=== PATIENT | female | born 2000 | race Caucasian/White ===

== ENCOUNTER 2020-02-29 05:40 | Emergency (ER) | payer OTHER ==
[~2020-02-29] VITALS: Ht 165.1 cm; Wt 82.0 kg
--- NOTE | 2020-02-29 05:52 | PHYS DOC ---
General Adult EDM: Chief Complaint: VAGINAL BLEEDING HPI: HPI: 19 yo F @ approximately 13w2d (RAMO 09/03/20), presents to the ED with complaints of vaginal spotting that was very scant and dark brown, that started 3 days ago. Now states for the past few hours she has had heavy vaginal bleedi ng and is concerned she's having a miscarriage. Follows with OB Dr. Wilfred Moran at [facility], had a transvaginal ultrasound that confirmed intrauterine . States at her 9-week appointment she was told the baby had "fluid in the lungs." At her 12-week appointment she was told the baby had no heartbeat and miscarriage was inevitable, reports she took ibuprofen at 1 AM and 4 AM before coming in. No history of bleeding disorders, blood transfusions or past surgical history. Takes daily multivitamins but no other prescribed medications. No tobacco, cocaine or other drug use. ROS: Denies associated fever, chills, cough, sore throat, dyspnea, chest pain, nausea, vomiting, diaphoresis, upper abdominal pain, flank pain, dysuria, he maturia, leg swelling, rash or blurry vision. (JACKELIN BATEMAN DO) HPI: The history was obtained from the patient. Patient is a 19-year-old female G1, P0 with no reported PMH who presents with a chief complaint of lower abdominal pain. Patient states that she is approximately 10 weeks . She notes that she has had previous ultrasounds to confirm IUP. She states a couple weeks ago her AUTOMOBILE SERVICE STATION MANAGER told her that the baby had fluid in its lungs and that she would likely miscarry. She states that the suprapubic pain is been aching in nature and constant. Denies any alleviating or exacerbating factors. Denies any vaginal bleeding or discharge. Denies syncope. No other complaints. (PEDRO LUIS LEE DO) Review of Systems: Review of Systems: Constitutional: Denies fever or chills Eyes: Denies change in visual acuity HENT: Denies nasal congestion or sore throat Respiratory: Denies cough or shortness of breath Cardiovascular: Denies chest pain or edema GI: Denies abdominal pain, nausea, vomiting, bloody stools or diarrhea : Denies dysuria Musculoskeletal: Denies back pain or joint pain Integument: Denies rash Neurologic: Denies headache, focal weakness or sensory changes Endocrine: Denies polyuria or polydipsia Lymphatic: Denies swollen glands Psychiatric: Denies depression or anxiety (JACKELIN BATEMAN DO) Review of Systems: Positive for abdominal pain All other review of systems negative (PEDRO LUIS LEE DO) Physical Exam: PE: Constitutional: Well developed, well nourished, no acute distress, non-toxic appearance. [] HENT: Normocephalic, atraumatic, bilateral external ears normal, nose normal. [] Eyes: EOMI, conjunctiva normal, no discharge. [] Neck: Normal range of motion, no tenderness, supple, no stridor. [] Cardiovascular:Heart rate regular rhythm, no murmur [] Lungs & Thorax: Bilateral breath sounds clear to auscultation [] Abdomen: Bowel sounds normal, soft, no tenderness, no masses, no pulsatile m asses. [] Skin: Warm, dry, no erythema, no rash. [] Back: No tenderness, no CVA tenderness. [] Extremities: No tenderness, no cyanosis, no clubbing, ROM intact, no edema. [] Neurologic: Alert and oriented X 3, normal motor function, normal sensory function, no focal deficits noted. [] Psychologic: judegement normal, appropriately emotional/tearful (JACKELIN BATEMAN DO) PE: Constitutional: Well developed, well nourished, no acute distress, non-toxic appearance. [] HENT: Normocephalic, atraumatic, bilateral external ears normal, oropharynx moist, nose normal. [] Eyes: PERRLA, EOMI, conjunctiva normal, no discharge. [] Neck: Normal range of motion, no tenderness, supple, no stridor. [] Cardiovascular: Heart rate regular rhythm, no murmur [] Lungs & Thorax: Bilateral breath sounds clear to auscultation [] Abdomen: Soft, no tenderness, no masses, no pulsatile masses. [] : Pelvic exam chaperoned by YAZAN Cody. Patient did have mild amount of bright red blood in the vaginal canal. After suctioning there was mild oozing noted from the external cervical os. No tissue visualized. No clots visualized. Skin: Warm, dry, no erythema, no rash. [] Back: No tenderness, no CVA tenderness. [] Extremities: No tenderness, no cyanosis, no clubbing, ROM intact, no edema. [] Neurologic: Alert and oriented X 3, normal motor function, normal sensory function, no focal deficits noted. [] Psychologic: Affect normal, judgement normal, mood normal. [] (PEDRO LUIS LEE DO) Current Patient Data: Labs: Laboratory Tests Test 02/29/20 05:59 02/29/20 06:10 Bedside Urine HCG, Qualitative hcg positive White Blood Count 12.2 x10^3/uL Red Blood Count 4.72 x10^6/uL Hemoglobin 13.2 g/dL Hematocrit 39.7 % Mean Corpuscular Volume 84 fL Mean Corpuscular Hemoglobin 28 pg Mean Corpuscular Hemoglobin Concent 33 g/dL Red Cell Distribution Width 14.6 % Platelet Count 246 x10^3/uL Neutrophils (%) (Auto) 74 % Lymphocytes (%) (Auto) 16 % Monocytes (%) (Auto) 8 % Eosinophils (%) (Auto) 2 % Basophils (%) (Auto) 1 % Neutrophils # (Auto) 9.1 x10^3uL Lymphocytes # (Auto) 1.9 x10^3/uL Monocytes # (Auto) 0.9 x10^3/uL Eosinophils # (Auto) 0.2 x10^3/uL Basophils # (Auto) 0.1 x10^3/uL Prothrombin Time 10.2 SEC Prothromb Time International Ratio 1.0 Activated Partial Thromboplast Time 25 SEC Urine Collection Type Unknown Urine Color Yellow Urine Clarity Hazy Urine pH 7.0 Urine Specific Scroggins 1.025 Urine Protein Trace Urine Glucose (UA) Neg mg/dL Urine Ketones (Stick) Neg mg/dL Urine Blood Trace Urine Nitrite Neg Urine Bilirubin Neg Urine Urobilinogen Dipstick 0.2 mg/dL Urine Leukocyte Esterase Neg Urine RBC 1-2 /HPF Urine WBC Occ /HPF Urine Squamous Epithelial Cells Mod /LPF Urine Bacteria Mod /HPF Urine Mucus Slight /LPF Maternal Serum HCG Beta Subunit 1224 mIU/mL Sodium Level 140 mmol/L Potassium Level 3.6 mmol/L Chloride Level 102 mmol/L Carbon Dioxide Level 26 mmol/L Anion Gap 12 Blood Urea Nitrogen 12 mg/dL Creatinine 0.9 mg/dL Estimated GFR (Cockcroft-Gault) 79.0 Glucose Level 112 mg/dL Calcium Level 8.9 mg/dL Vital Signs: Vital Signs Date Time Temp Pulse Resp B/P (MAP) Pulse Ox O2 Delivery O2 Flow Rate FiO2 02/29/20 05:45 98.8 103 24 97 Room Air (PEDRO LUIS LEE DO) EKG: EKG: [] (JACKELIN BATEMAN DO) Radiology/Procedures: Radiology/Procedures: [] (JACKELIN BATEMAN DO) Radiology/Procedures: [place] [address] IMAGING REPORT Signed PATIENT: KERI RIVERA AACCOUNT: [id number] : 2000 LOCATION: ER AGE: 19 SEX: F EXAM STATUS: REG ER ORD. PHYSICIAN: JACKELIN BATEMAN DO REASON: vb at 12 wks, PT WENT TO OB END OF JANUARY AND NO FHR. PASSED CLOT. PROCEDURE: OB <14 WKS W/TV INDICATION: Reason: vb at 12 wks, PT WENT TO OB END OF JANUARY AND NO FHR. PASSED CLOT. COMPARISON: None. TECHNIQUE: Grayscale and color ultrasound images uterus and adnexa. Transabdominal and transvaginal images obtained. Transvaginal images were needed to better visualize structures that were limited on transabdominal imaging. FINDINGS: Uterus: 89 x 57 x 49 mm. Endometrial Stripe: 13 mm. Right Ovary: 39 x 26 x 16 mm. Left Ovary: 33 x 20 x 19 mm. Vascular flow identified to bilateral ovaries. Trace free fluid in the pelvis. IMPRESSION: * There is some heterogeneity of the endometrial stripe which appears prominent in thickness. This could be secondary to some debris or tissue within. Follow-up could be obtained to ensure that there is appropriate decrease in the finding. * There is no intrauterine gestational sac or pole. Electronically signed by: Owen Jarrett MD (02/29/2020 7:15 AM) [id number] DICTATED AND SIGNED BY: OWEN JARRETT MD DATE: 02/29/20 0715 CC: PCP,NO; PEDRO LUIS LEE DO; JACKELIN BATEMAN DO ~ (PEDRO LUIS LEE DO) Course & Med Decision Making: Course & Med Decision Making Pertinent Labs and Imaging studies reviewed. (See chart for details) []Concern for incomplete spontaneous . At time of shift change patient was receiving her ultrasound and labs were pending. Patient was stable and was signed out to oncoming physician Dr. Simon. (JACKELIN BATEMAN DO) Course & Med Decision Making Patient is a well-appearing 19-year-old female who presents with chief complaint of lower abdominal pain. Initial vital signs unremarkable. Physical exam noted above. While awaiting ultrasound imaging the patient did go to the bathroom and passed a large clot. States it was matta and bloody in appearance. She did flushes in the toilet we are unable to send this for pathologic testing. Patient's test positive. A positive blood type. RhoGam will be deferred. Pelvic exam revealed minimal vaginal bleeding. Ultrasound of not reveal any intrauterine . Patient likely experiencing complete versus incomplete miscarriage. On repeat examination her abdomen is benign. Vital signs remained appropriate. Hemoglobin within normal limits. Given the small amount of vaginal bleeding on examination I do feel she is appropriate for outpatient follow-up. She states she can follow-up with her [employer]ICE STATION MANAGER within the next 2 days. Return precautions were discussed and understood. Patient is agreeable to discharge home. Stable for discharge. (PEDRO LUIS LEE DO) Dragon Disclaimer: Ama Disclaimer: This electronic medical record was generated, in whole or in part, using a voice recognition dictation system. (JACKELIN BATEMAN DO) Departure Departure: Impression: Primary Impression: Incomplete Disposition: HOME/RESIDENCE PRIOR TO ADM Condition: STABLE Referrals: PCP,NO (PCP) Patient Instructions: Incomplete Miscarriage Additional Instructions: Please follow-up with your AUTOMOBILE SERVICE STATION MANAGER in the next 2 to 3 days. Scripts Ibuprofen (IBUPROFEN) 200 Mg Tablet 600 MG PO QIDPRN PRN for PAIN, #15 TAB Prov: PERDO LUIS LEE DO 02/29/20 Justification of Admission: Justification of Admission: Justification of Admission Dx: N/A (PEDRO LUIS LEE DO) JACKELIN BATEMAN DO Feb 29, 2020 05:52 PEDRO LUIS LEE DO Feb 29, 2020 07:27
[2020-02-29] MEDS ORDERED: PREN1TAB58 PO (05:57)
[2020-02-29 06:28] LABS: BASO # 0.1 x10^3/uL (0.0-0.2); BASO % 1 % (0-3); EOS # 0.2 x10^3/uL (0.0-0.7); EOS % 2 % (0-3); HEMATOCRIT 39.7 % (36.0-47.0); HEMOGLOBIN 13.2 g/dL (12.0-15.5); LYMPH # 1.9 x10^3/uL (1.0-4.8); LYMPH % 16 % (24-48); MEAN CORPUSCULAR HEMOGLOBIN 28 pg (25-35); MEAN CORPUSCULAR HGB CONC 33 g/dL (31-37); MEAN CORPUSCULAR VOLUME 84 fL (79-100); MONO # 0.9 x10^3/uL (0.0-1.1); MONO % 8 % (0-9); NEUT # 9.1 x10^3uL (1.8-7.7); NEUT % 74 % (31-73); PLATELET COUNT 246 x10^3/uL (140-400); RED BLOOD COUNT 4.72 x10^6/uL (3.50-5.40); RED CELL DISTRIBUTION WIDTH 14.6 % (11.5-14.5); WHITE BLOOD COUNT 12.2 x10^3/uL (4.0-11.0)
[2020-02-29 06:34] LABS: CALCIUM 8.9 mg/dL (8.5-10.1); CREATININE 0.9 mg/dL (0.6-1.0); POTASSIUM 3.6 mmol/L (3.5-5.1)
[2020-02-29 06:35] LABS: BACTERIA,URINE MOD /HPF (0-FEW); BILIRUBIN,URINE NEG (NEG); CLARITY,URINE HAZY; COLOR,URINE YELLOW; GLUCOSE,URINE NEG (NEG); NITRITE,URINE NEG (NEG); SQUAMOUS EPITHELIAL CELL,UR MOD /LPF; UROBILINOGEN,URINE 0.2 mg/dL (0.2 mg/dL); WBC,URINE OCC /HPF (0-4)
--- NOTE | 2020-02-29 07:18 | RAD ---
INDICATION: Reason: vb at 12 wks, PT WENT TO OB END OF JANUARY AND NO FHR. PASSED CLOT. COMPARISON: None. TECHNIQUE: Grayscale and color ultrasound images uterus and adnexa. Transabdominal and transvaginal images obtained. Transvaginal images were needed to better visualize structures that were limited on transabdominal imaging. FINDINGS: Uterus: 89 x 57 x 49 mm. Endometrial Stripe: 13 mm. Right Ovary: 39 x 26 x 16 mm. Left Ovary: 33 x 20 x 19 mm. Vascular flow identified to bilateral ovaries. Trace free fluid in the pelvis. IMPRESSION: * There is some heterogeneity of the endometrial stripe which appears prominent in thickness. This could be secondary to some debris or tissue within. Follow-up could be obtained to ensure that there is appropriate decrease in the finding. * There is no intrauterine gestational sac or pole. Electronically signed by: William Galeas MD (02/29/2020 7:15 AM) [id number]
[2020-02-29] MEDS ORDERED: IBUP-1673 PO (07:26)
[2020-02-29 07:27] VITALS: BP 121/65
== END 2020-02-29 07:30 | disposition home or self-care (01) ==
LOC: ER 05:40
DX: O03.4 Incomplete spontaneous abortion without complication (principal)
CPT/HCPCS: 36415; 76801; 76817; 80048; 81001; 81025; 84702; 85025; 85610; 85730; 86900; 86901; 99284

== ENCOUNTER 2020-06-08 13:48 | Emergency (ER) | payer SELFPAY ==
[~2020-06-08] VITALS: Ht 165.1 cm; Wt 83.3 kg
[~2020-06-08 13:48] MED LIST: IBUP-1673 PO; PREN1TAB58 PO
[2020-06-08 15:09] LABS: BASO % 1 % (0-3); EOS # 0.1 x10^3/uL (0.0-0.7); EOS % 2 % (0-3); HEMATOCRIT 40.3 % (36.0-47.0); LYMPH # 1.5 x10^3/uL (1.0-4.8); LYMPH % 24 % (24-48); MEAN CORPUSCULAR HEMOGLOBIN 27 pg (25-35); MEAN CORPUSCULAR HGB CONC 32 g/dL (31-37); MEAN CORPUSCULAR VOLUME 84 fL (79-100); MONO # 0.6 x10^3/uL (0.0-1.1); MONO % 9 % (0-9); NEUT % 64 % (31-73); PLATELET COUNT 292 x10^3/uL (140-400); RED CELL DISTRIBUTION WIDTH 14.8 % (11.5-14.5); WHITE BLOOD COUNT 6.2 x10^3/uL (4.0-11.0)
[2020-06-08 15:12] LABS: BARBITURATES NEG (NEG); BENZODIAZEPINES NEG (NEG); CANNABINOIDS POS (NEG); COCAINE NEG (NEG); METHADONE NEG (NEG); OPIATES NEG (NEG); PHENCYCLIDINE NEG (NEG)
--- NOTE | 2020-06-08 15:13 | PHYS DOC ---
Past History Past Medical History: No Pertinent History (GURVINDER STEPHENS APRN) Past Surgical History: No Surgical History (GURVINDER STEPEHNS APRN) Alcohol Use: Occasionally (GURVINDER STEPHENS APRN) Adult General Chief Complaint Chief Complaint: VAGINAL BLEEDING [facility] HPI Patient is a 19-year-old female patient 3 para 0 currently 7 weeks presenting to the ED today with vaginal bleeding that began 5 days ago. Patient is also complaining of mild lower abdominal cramping since yesterday. [facility] with an CLINICAL TRIALS ASSISTANT there. She states 6 days ago she had a beta-hCG which was in the 600s. She states the day after the beta-hCG was done she started bleeding. She states the bleeding started small and has has progressively gotten worse. She states in 24 hours she has used 5 feminine pads. She states her last miscarriage was in February 2020. (GURVINDER STEPHENS APRN) Review of Systems Review of Systems Constitutional: Denies fever or chills [] Eyes: Denies change in visual acuity, redness, or eye pain [] HENT: Denies nasal congestion or sore throat [] Respiratory: Denies cough or shortness of breath [] Cardiovascular: No additional information not addressed in HPI [] GI: Reports vaginal bleeding in , reports abdominal cramping, denies nausea, vomiting, bloody stools or diarrhea [] : Denies dysuria or hematuria [] Musculoskeletal: Denies back pain or joint pain [] Integument: Denies rash or skin lesions [] Neurologic: Denies headache, focal weakness or sensory changes [] All other systems were reviewed and found to be within normal limits, except as documented in this note. (GURVINDER STEPHENS APRN) Allergies Allergies Allergies Coded Allergies Type Severity Reaction Last Updated Verified Penicillins Allergy Intermediate 06/08/20 Yes (GURVINDER STEPHENS APRN) Physical Exam Physical Exam Constitutional: Well developed, well nourished, no acute distress, non-toxic appearance. [] HENT: Normocephalic, atraumatic, bilateral external ears normal, oropharynx moist, no oral exudates, nose normal. [] Eyes: PERRLA, EOMI, conjunctiva normal, no discharge. [] Neck: Normal range of motion, no tenderness, supple, no stridor. [] Cardiovascular:Heart rate regular rhythm, no murmur [] Lungs & Thorax: Bilateral breath sounds clear to auscultation [] Abdomen: Bowel sounds normal, soft, no tenderness, no masses, no pulsatile masses. [] Pelvic exam External pelvic is normal, cervix is visualized, closed, no CMT, trace amount of bright red blood in the vaginal vault. Skin: Warm, dry, no erythema, no rash. [] Back: No tenderness, no CVA tenderness. [] Extremities: No tenderness, no cyanosis, no clubbing, ROM intact, no edema. [] Neurologic: Alert and oriented X 3, normal motor function, normal sensory function, no focal deficits noted. [] Psychologic: Affect normal, judgement normal, mood normal. [] (GURVINDER STEPHENS APRN) Current Patient Data Vital Signs Vital Signs Date Time Temp Pulse Resp B/P (MAP) Pulse Ox O2 Delivery O2 Flow Rate FiO2 06/08/20 14:51 90 18 133/70 (91) 100 Room Air 06/08/20 13:56 98.7 (GURVINDER STEPHENS APRN) EKG EKG [] (GURVINDER STEPHENS APRN) Radiology/Procedures Radiology/Procedures []PROCEDURE: OB <14 WKS W/TV Examination: OB <14 WKS W/TV History: Reason: vag bleeding in , HCG PENDING / Spl. Instructions: / History: Comparison/Correlation: None Findings: Transvaginal and transabdominal pelvic ultrasound was performed. Transvaginal technique was utilized to better assess the adnexal structures. Uterus measures 9.4 cm x 5.4 cm x 4.7 cm myometrium is normal. Endometrial thickness is 1.2 cm. Small amount of fluid is present within the cul-de-sac. Right ovary measures 2.5 cm x 3.4 cm x 2.1 cm. Small ovarian follicles are present. Left ovary measures 6.4 cm 4.5 cm x 4.1 cm. There is a cyst measuring 4.4 cm x 4.5 cm x 2.9 cm with debris within it. No flow involving this cyst. Normal ovarian flow is evident. Impression: No intrauterine gestational sac or pole identified. No suspicious adnexal mass although a large cyst is present containing debris. Interval follow-up pelvic ultrasound to assess resolution recommended. Follow-up ultrasound and serial beta hCG should be considered if an ectopic gestation is of concern. Electronically signed by: Gerson Angeles MD (06/08/2020 3:28 PM) [facility] DICTATED AND SIGNED BY: GERSON ANGELES MD DATE: 06/08/20 1528 CC: GURVINDER STEPHENS APRN; PCP,NO ~ (GURVINDER STEPHENS APRN) Heart Score Risk Factors: Risk Factors: DM, Current or recent (<one month) smoker, HTN, HLP, family history of CAD, obesity. Risk Scores: Risk Factors: DM, Current or recent (<one month) smoker, HTN, HLP, family history of CAD, obesity. (GURVINDER STEPHENS APRN) Course & Med Decision Making Course & Med Decision Making Pertinent Labs and Imaging studies reviewed. (See chart for details) This is a 19-year-old female patient presenting to the ED today with vaginal bleeding and that began 5 days ago. She is a 3 para 0. She is currently 7 weeks per her own statement. Blood type A+ from previous miscarriage February 2020. Positive urine history G, beta-hCG 112. CBC with a normal WBC, normal hemoglobin and hematocrit, CMP with nothing really acute, urine analysis nega tive for infection, drug screen positive for marijuana use. OB ultrasound No intrauterine gestational sac or pole identified. No suspicious adnexal mass although a large cyst is present containing debris. Interval follow-up pelvic ultrasound to assess resolution recommended. Follow-up ultrasound and serial beta hCG should be considered if an ectopic gestation is of concern. Results of communicated to patient. Instructed to follow-up with her CLINICAL TRIALS ASSISTANT in the course of this week. Recommended pelvic rest. Provided return precautions. (GURVINDER STEPHENS APRN) Course & Med Decision Making I have participated in the care of this patient and I have reviewed and agree with all pertinent clinical information above including history, exam, and recommendations. (VALENTINO ELENA MD) Dragon Disclaimer Dragon Disclaimer This electronic medical record was generated, in whole or in part, using a voice recognition dictation system. (GURVINDER STEPHENS APRN) Departure Departure: Impression: Primary Impression: Miscarriage Disposition: 01 DC HOME SELF CARE/HOMELESS Condition: STABLE Referrals: PCP,NO (PCP) follow up with your OBGYN as soon as possible Patient Instructions: Miscarriage, [id number] Additional Instructions: You were evaluated in the emergency room, the work-up we have done shows you are having a miscarriage. There is no intrauterine on Ultrasound. You have a cyst in the left ovary. Please ensure you follow-up with an CLINICAL TRIALS ASSISTANT as soon as possible, come back to the ED at any point symptoms worsen. GURVINDER STEPHENS APRN Jun 08, 2020 15:13 VALENTINO ELENA MD Jun 08, 2020 15:47
[2020-06-08 15:15] LABS: BILIRUBIN,URINE NEG (NEG); CLARITY,URINE CLEAR; COLOR,URINE YELLOW; GLUCOSE,URINE NEG (NEG)
[2020-06-08 15:16] LABS: BACTERIA,URINE 0 /HPF (0-FEW); CALCIUM 8.6 mg/dL (8.5-10.1); CREATININE 0.7 mg/dL (0.6-1.0); GFR 105.6; NITRITE,URINE NEG (NEG); POTASSIUM 3.4 mmol/L (3.5-5.1); SQUAMOUS EPITHELIAL CELL,UR OCC /LPF; UROBILINOGEN,URINE 0.2 mg/dL (0.2 mg/dL); WBC,URINE RARE /HPF (0-4)
[2020-06-08 15:17] LABS: AMPHETAMINE/METHAMPHETAMINE NEG (NEG)
[2020-06-08 15:22] LABS: ALBUMIN 3.8 g/dL (3.4-5.0); ALBUMIN/GLOBULIN RATIO 0.9 (1.0-1.7); TOTAL BILIRUBIN 0.1 mg/dL (0.2-1.0); TOTAL PROTEIN 8.2 g/dL (6.4-8.2)
[2020-06-08 15:24] LABS: U PREG PATIENT POSITIVE (NEG)
--- NOTE | 2020-06-08 15:32 | RAD ---
Examination: OB <14 WKS W/TV History: Reason: vag bleeding in , HCG PENDING / Spl. Instructions: / History: Comparison/Correlation: None Findings: Transvaginal and transabdominal pelvic ultrasound was performed. Transvaginal technique was utilized to better assess the adnexal structures. Uterus measures 9.4 cm x 5.4 cm x 4.7 cm myometrium is normal. Endometrial thickness is 1.2 cm. Small amount of fluid is present within the cul-de-sac. Right ovary measures 2.5 cm x 3.4 cm x 2.1 cm. Small ovarian follicles are present. Left ovary measures 6.4 cm 4.5 cm x 4.1 cm. There is a cyst measuring 4.4 cm x 4.5 cm x 2.9 cm with debris within it. No flow involving this cyst. Normal ovarian flow is evident. Impression: No intrauterine gestational sac or pole identified. No suspicious adnexal mass although a large cyst is present containing debris. Interval follow-up pelvic ultrasound to assess resolution recommended. Follow-up ultrasound and serial beta hCG should be considered if an ectopic gestation is of concern. Electronically signed by: Todd Mccartney MD (06/08/2020 3:28 PM) [facility]
[2020-06-08 15:53] VITALS: BP 117/60
[2020-06-10 21:01] LABS: CHLAMYDIA PROBE Negative (Negative)
== END 2020-06-08 16:02 | disposition home or self-care (01) ==
LOC: ER 13:48
DX: O03.9 Complete or unspecified spontaneous abortion without complication (principal); Z88.0 Allergy status to penicillin
CPT/HCPCS: 76801; 76817; 80053; 80307; 81001; 81025; 84702; 85025; 87491; 87591; 99284; G0480; Q0111; 36415